=== PATIENT | female | born 1980 | race Hispanic/Latino ===

== ENCOUNTER 2017-04-23 11:51 | Inpatient (IN) | payer OTHER ==
[2017-04-23 14:02] VITALS: BMI 26.7
[2017-04-23] MEDS ORDERED: AMPicillin 2 GM in Sodium Chloride 0.9% 100 ML IVPB STA (14:02)
[2017-04-23] MEDS: Lactated Ringer's 1,000 ML IV SCH (14:20)
--- NOTE | 2017-04-23 14:32 | OBADHP ---
Datetime: 04/23/2017 14:06 Admit Comment, IP Provider: 32-year-old 001 at 37 weeks gestational age transferred to the ED for early labor. Patient checked by primary physician in office this morning found to be 3-4 cm dilat ed, percent effaced, -1 station. records were reviewed. Patient with hospital admission stacey ier in due to labor. Patient received her steroid course and treatment. Patient als o with history of precipitous delivery. Continuous positive Past medical history none Past surgical history none Medications vitamins No known drug allergies Obstetrical history normal spontaneous vaginal delivery 1 Social history no tobacco, no drugs, alcohol Physical exam: Physical exam findings Assessment: 32-year-old 001 at 37 weeks gestational age in early labor, GBS positive. Maternal well-bein g and well-being reassuring at this time. Plan: Admit for management of labor and delivery IV antibiotics for GBS prophylaxis Pelvic Type - PN: Adequate Extremities - PN: Normal Abdomen - PN: Normal Back - PN: Normal Breast - PN: Normal Lungs - PN: Normal Heart - PN: Normal Thyroid - PN: Normal Neurologic - PN: Normal HEENT - PN: Normal General - PN: Normal FHR - Baseline A Provider: 150s Membranes, Provider: Intact Contraction Comments Provider: irreg with irritability IP Hx Assessment: The History has been Reviewed and is Current Vital Signs Provider: Reviewed; Within Normal Limits IP Chief Complaint: Uterine contractions NICHD Variability Prov Fetus A: Moderate 6-25bpm NICHD Accel Fetus A IP Provider: [id number] FHR Category Provider Fetus A: Category I NICHD Decel Fetus A IP Provider: None Dilatation, Provider: 3-4cm Effacement, Provider: 100 Station, Provider: -1 Genitourinary Exam: Normal DTRs - PN: Normal EGA AdmitDate IP: 37.0 IP Adm Impression: Term, intrauterine IP Admit Plan: Admit to unit
[2017-04-23 14:46] LABS: BASO % 0.3 % (0.0-2.0); EOS # 0.1 K/uL (0.0-0.7); EOS % 0.9 % (0.0-4.0); LYMPH # 1.4 K/uL (1.0-4.3); LYMPH % 15.6 % (20.0-40.0); MEAN CELL VOLUME 93.6 fl (81.0-99.0); MEAN CORPUSCULAR HEMOGLOBIN 32.1 pg (27.0-31.0); MEAN CORPUSCULAR HGB CONC 34.3 g/dL (33.0-37.0); MONO # 0.6 K/uL (0.0-0.8); MONO % 7.2 % (0.0-10.0); NEUT # 6.8 K/uL (1.8-7.0); NRBC % 0.1 % (0.0-0.0); RBC 4.68 Mil/uL (3.80-5.20); WHITE BLOOD COUNT 8.9 K/uL (4.8-10.8)
[2017-04-23] MEDS: AMPicillin 1 GM in Sodium Chloride 0.9% 100 ML IVPB SCH ×2 (18:11→22:45)
[2017-04-23] MEDS ORDERED: Oxytocin 30 units/LR 500ML 30 U/500 ML BAG IV ONE (20:47)
[2017-04-23] MEDS ORDERED: Oxytocin 30 units/LR 500ML 30 U/500 ML BAG IV PRN (21:21)
[2017-04-23] MEDS ORDERED: Lidocaine 2% Inj (20ml) ONE (23:00)
[2017-04-24] MEDS: AMPicillin 1 GM in Sodium Chloride 0.9% 100 ML IVPB SCH ×2 (02:55→06:34)
[2017-04-24] MEDS: Lactated Ringer's 1,000 ML IV SCH (06:32)
[2017-04-24] MEDS ORDERED: Benzocaine/Menthol SPRAY TOP PRN (08:01)
[2017-04-24] MEDS ORDERED: Oxycodone/Acetaminophen 5/325 mg Tab PO PRN ×2 (09:01→09:57)
--- NOTE | 2017-04-24 09:30 | OBDS ---
DELIVERY PERSONNEL Delivery Doctor: Arya Feng MD Telephone Lines Repairer: Nany Cedillo RN/Tahmina Kent RN MATERNAL INFORMATION Delivery Anesthesia: Local Medications in Delivery: pitocin Estimated Blood Loss (ml): 250 Placenta Cultured: No Other Maternal Complications: hx of PTL early in preg RN Comments: patient delivered a viable female , baby was clamped and placed on maternal chest for skin to skin. apgars were 9 and 9. patient delivered placenta and was repaired for midline epis and second degree lac. pitocin infusi ng 30units at 999ml/hr. infant was weighed and returned to mother for skin to skin and latching. Dr Moreno was in room to examine post delivery. both mother and infant remained in stable condition. Provider Comments: Delivered a living baby girl appears term, cried spontaneously 9/9, AF concepción r Placenta delivered complete and intact Episiotomy done and small 1 dg vagianal laceration noted krista th repaired as above wihout any complication. Uterus contracted well Rectal done no defect Tolerated procedure well No complications LABOR SUMMARY EDC: 05/14/2017 00:00 No. Babies in Womb: 1 Attempted: No Labor Anesthesia: None LABOR INFORMATION Reason for Induction: Not Applicable Onset of Labor: 04/24/2017 06:47 Complete Dilatation: 04/24/2017 07:10 Oxytocin: Augmentation Group B Beta Strep: Positive Antibiotics # of Doses: 5 Antibiotics Time of Last Dose: 0630 Steroids Given: < 24 Hours before Delivery Other Reason Not Administered: pt stated she recvd 4 doses at [facility] at 24+3 and 32 weeks MEMBRANES Membranes Rupture Method: Spontaneous Rupture of Membranes: 04/24/2017 07:06 Length of Rupture (hrs): 0.10 Amniotic Fluid Color: Clear Amniotic Fluid Amount: Moderate Amniotic Fluid Odor: Normal STAGES OF LABOR Stage 1 hrs: 0 Stage 1 min: 23 Stage 2 hrs: 0 Stage 2 min: 2 Stage 3 hrs: 0 Stage 3 min: 4 Total Time in Labor hrs: 0 Total Time in Labor min: 29 VAGINAL DELIVERY Episiotomy: Median Laceration Extension: Second Degree Laceration Type: Perineal Laceration Repair: Yes Laceration Repair Note: episiotomy and vaginal-perineal laceration repaired with 2-0 chromic suture without any complications Initial Vag Sponge Count: 10 Final Vag Sponge Count: 10 Initial Vag Sharps Count: 3 Final Vag Sharps Count: 3 Sponge Count Correct: Yes Sharps Count Correct: Yes Count Comment: count correct and verifired by RN CSECTION DELIVERY Primary Indication: N/A Secondary Indication: N/A CSection Incision: N/A Uterine Closure: N/A BABY A INFORMATION Infant Delivery Date/Time: 04/24/2017 07:12 Method of Delivery: Vaginal Born in Route : No : N/A Forceps: N/A Vacuum Extraction: N/A Shoulder Dystocia : No ASSISTED DELIVERY BABY A Station Vacuum/Forcep Apply: SHOULDER DYSTOCIA BABY A Infant Delivery Date/Time: 04/24/2017 07:12 PRESENTATION/POSITION BABY A Presentation: Cephalic Cephalic Presentation: Vertex PLACENTA INFORMATION BABY A Placenta Delivery Time : 04/24/2017 07:16 Placenta Method of Delivery: Spontaneous Placenta Status: Delivered SCORES BABY A Heart Rate 1 min: >100 bpm Resp Effort 1 min: Good Cry Reflex Irritability 1 min: Cough or Sneeze or Pulls Away Muscle Tone 1 min: Active Motion Color 1 min: Body [place], Extremities Blue Resuscitation Effort 1 min: N/A SCORE 1 MIN: 9 Heart Rate 5 min: >100 bpm Resp Effort 5 min: Good Cry Reflex Irritability 5 min: Cough or Sneeze or Pulls Away Muscle Tone 5 min: Active Motion Color 5 min: Body [place], Extremities Blue Resuscitation Effort 5 min: N/A SCORE 5 MIN: 9 INFANT INFORMATION BABY A Gestational Age at Delivery: 37.0 Gestational Status: Term Outcome : Liveborn Infant Condition : Stable Sex: Female IDENTIFICATION/MEDS BABY A ID Band Number: [id number] WEIGHT/LENGTH BABY A Infant Birthweight (gms): 3190 Infant Weight (lb): 7 Weight (oz): 0 CORD INFORMATION BABY A No. Cord Vessels: 3 Cord Blood Taken: Yes Suction: Mouth
[2017-04-25 06:45] LABS: HEMOGLOBIN 13.4 g/dL (12.0-16.0); MEAN CELL VOLUME 94.8 fl (81.0-99.0); MEAN CORPUSCULAR HEMOGLOBIN 32.5 pg (27.0-31.0); MEAN CORPUSCULAR HGB CONC 34.3 g/dL (33.0-37.0); RBC 4.12 Mil/uL (3.80-5.20); RED CELL DISTRIBUTION WIDTH 13.1 % (11.5-14.5); WHITE BLOOD COUNT 7.9 K/uL (4.8-10.8)
[2017-04-25] MEDS: Benzocaine/Menthol SPRAY TOP PRN (21:22)
[2017-04-26] MEDS: Benzocaine/Menthol SPRAY TOP PRN (02:55)
--- NOTE | 2017-04-26 11:32 | OBPPN ---
Datetime: 04/26/2017 11:26 PP Pain Prov: Within normal limits PP Pain Prov comment: No SOB, chest pains or leg pains PP Nausea Prov: Denies PP Flatus Prov: Yes PP Breasts Prov: Normal PP Lungs Prov: Normal PP Abdomen/Uterus Prov: Abnormal PP Lochia Prov: Normal PP Vulva/Perineum Prov: Abnormal PP CVA Tenderness Prov: Normal PP Extremities Prov: Normal PP C/S Incision Prov: Not Applicable PP Progress Prov: Normal PP Comments Phys Exam Prov: breast not engorged NT Abd soft NT fundus firm below the umb NT Perineum repaired Ext no leg edema or calf tenderness PP Impression Prov: Normal progression PP Plan Prov: Discharge PP Progress Note Prov: D/C home with instructions and follow up office in 4-6 wks IP PP Procedures: None Datetime: 04/25/2017 12:39 PP BM Prov: No PP Heart Prov: Normal Vital Signs Provider PP: Reviewed; Within Normal Limits
--- NOTE | 2017-04-26 11:34 | OBDCSUM ---
Datetime: 04/26/2017 11:31 Discharged to, Provider: Home Follow up at, Provider: Dr Feng Disch Instr Activity: Bedrest; May be up to bathroom; May be up for meals; May Shower Disch Instr Diet: Regular Discharge Instructions, Provider: Routine instructions given Discharge Diagnosis, Provider: Term Delivered Discharge Time: 04/26/2017 11:31 Follow up in weeks, Provider: 4-6 wks Disch Referrals: None Contraception discussed, Prov: Yes Disch Activity Restrictions: No exercising; No lifting; No driving; Minimize walking; Minimize stair -climbing; No sexual activity; Nothing in vagina - [place], tampons, douche Discharge Comment, Provider: Continue PP care and PNC vit and iron Discharge Diagnosis Prov Other: hx of PTL Contraception after Delivery: Undecided Datetime: 04/26/2017 09:17 Discharged to, Provider: Home Disch Instr Activity: Normal activity; May be up to bathroom; May be up for meals; May Shower Disch Instr Diet: Regular Discharge Time: 04/26/2017 11:00 Disch Referrals: None Disch Activity Restrictions: No lifting; No sexual activity; Nothing in vagina - [place], tampon s, douche
[2017-04-26 18:23] VITALS: BP 99/61; PULSE 85; RESP 18; TEMP 97.6; O2SAT 97
== END 2017-04-26 13:50 | disposition home or self-care (01) | DRG 775 ==
LOC: H.EROB2 11:51 → H.L&D 14:02 → H.OB/GYN 04-24 09:44
PROVIDERS: ADMIT Specialist; ATTEND Specialist
PROC: 4A1HXCZ Monitoring of Products of Conception, Cardiac Rate, External Approach (ICD-10-PCS; 2017-04-23)
PROC: 10E0XZZ Delivery of Products of Conception, External Approach (ICD-10-PCS; principal; 2017-04-24)
PROC: 0KQM0ZZ Repair Perineum Muscle, Open Approach (ICD-10-PCS; 2017-04-24)
PROC: 0W8NXZZ Division of Female Perineum, External Approach (ICD-10-PCS; 2017-04-24)
DX: O70.1 Second degree perineal laceration during delivery (principal); Z37.0 Single live birth; O99.824 Streptococcus B carrier state complicating childbirth; Z3A.37 37 weeks gestation of pregnancy